=== PATIENT | female | born 1990 | race Caucasian/White ===

== ENCOUNTER 2018-10-10 16:16 | Outpatient (CLI) | payer MEDICAID | END 2018-10-10 16:17 | disposition home or self-care (01) | LOC: LAB 16:16 | PROVIDERS: ATTEND Obstetrics & Gynecology | DX: Z34.82 Encounter for supervision of other normal pregnancy, second trimester (principal); Z36.8A Encounter for antenatal screening for other genetic defects ==

== ENCOUNTER 2018-10-13 18:09 | Outpatient (CLI) | payer MEDICAID | END 2018-10-13 18:10 | disposition home or self-care (01) | LOC: LAB 18:09 | PROVIDERS: ATTEND Obstetrics & Gynecology | DX: Z36.89 Encounter for other specified antenatal screening (principal); Z34.82 Encounter for supervision of other normal pregnancy, second trimester; Z36.8A Encounter for antenatal screening for other genetic defects | CPT/HCPCS: 36415; 81220; 81243; 81329; 81599; 82105; 83021; 85014; 85018; 85041; 86787; 99001 ==

== ENCOUNTER 2018-10-22 07:47 | Outpatient (CLI) | payer MEDICAID ==
--- NOTE | 2018-10-22 09:36 | Ultrasound Report ---
Reason: ENCTR FOR OTHER SPECIFIED SCREENING Procedure Date: 10/22/2018 Accession Number: [id number] / [id number] Procedure: US - OB Detailed Eval CPT Code: FULL RESULT: EXAM: COMPLETE OBSTETRICAL ULTRASOUND EXAM DATE: 10/22/2018 09:10 AM. CLINICAL HISTORY: anatomic survey. COMPARISON: None. TECHNIQUE: Real-time sonographic evaluation of the fetus performed by the steam tank operator. Multiple digital media representative static images were saved for review. DATING: Established EGA 22 weeks 3 days with SAUL 02/22/2019 based on physician stated. EGA 22 weeks 0 days with SAUL 02/25/2019 based on the current ultrasound. GENERAL EVALUATION Flores . Cardiac activity: 159 bpm. movement: Visualized. Presentation: Cephalic. Placenta: Posterior position. No evidence for previa. Umbilical cord: 3 vessel cord. Central placental cord origin. Amniotic fluid: Subjectively normal. HUGO 11.6 cm. MVP 3.6 cm. BIOMETRY Bi-Parietal Diameter (BPD): 5.1 cm, 21 weeks 2 days Head Circumference (HC): 19.8 cm, 22 weeks 0 days Abdominal Circumference (AC): 17.1 cm, 22 weeks 1 day Femur Length (FL): 3.9 cm, 22 weeks 3 days Estimated Weight: 484 g, 33th percentile for 22 weeks 3 days. ANATOMY The intracranial structures, profile, face/nose/lips, spine, 4 chamber heart and outflow tracts, stomach, abdominal wall and cord insertion, diaphragm, kidneys, bladder, and extremities were visualized and demonstrate no abnormality. MATERNAL STRUCTURES Uterus: Unremarkable. Cervix: Long and closed. Transabdominal length 4.8 cm. Right ovary/adnexa: Unremarkable. Left ovary/adnexa: Unremarkable. Free fluid: None. IMPRESSION: 1. Flores live intrauterine with gestational age 22 weeks 3 days based on physician stated. 2. Estimated weight is within expected limits for assigned dating. 3. Normal anatomic survey. No anatomic abnormalities are detected at this time. RADIA
== END 2018-10-22 07:48 | disposition home or self-care (01) ==
LOC: DI 07:47
PROVIDERS: ATTEND Obstetrics & Gynecology
DX: Z36.89 Encounter for other specified antenatal screening (principal)
CPT/HCPCS: 76811

== ENCOUNTER 2018-10-23 12:39 | Outpatient (CLI) | payer MEDICAID | END 2018-10-23 23:59 | disposition home or self-care (01) | LOC: LAB 12:39 | PROVIDERS: ATTEND Obstetrics & Gynecology | DX: Z36.8A Encounter for antenatal screening for other genetic defects (principal) | CPT/HCPCS: 36415 ==

== ENCOUNTER 2019-01-28 10:36 | Outpatient (CLI) | payer MEDICAID ==
--- NOTE | 2019-01-28 11:32 | PROCEDURE REPORT ---
- HPI Diagnosis/Indication for NST: Decreased movement (The patient comes to the OB department today complaining of decreased movement for 2 days and possible leakage of fluid 2 days ago. She thinks she might be having some contractions but she is unsure. She has not had any vaginal fluid since.She transferred from the [facility] to [place] in October of this year for this present . She went there is so she can have a TOLAC.She had a previous section and approximately 36 weeks.) - Results and Plan Findings/Impression: There is a reactive NST noted. There is good movement noted. The monitor strip was read on 01/28/2019. Impression: 1. Intrauterine at 36 weeks 3 days gestation 2. Decreased movement Plan: The patient is going to be discharged home. She does have a appointm ent tomorrow and will keep that appointment. She knows that if she truly does have signs of labor to [place] to be assessed because we do not do TOLAC here. We would need to just repeat her section. The patient understands.
[2019-01-28 11:58] VITALS: BP 116/75
== END 2019-01-28 11:37 | disposition home or self-care (01) ==
LOC: WFO 10:36 → FBP 10:41 → WFO 11:37
PROVIDERS: ATTEND Obstetrics & Gynecology
DX: O36.8130 Decreased fetal movements, third trimester, not applicable or unspecified (principal); O34.219 Maternal care for unspecified type scar from previous cesarean delivery; Z3A.49 Greater than 42 weeks gestation of pregnancy
CPT/HCPCS: 59025

== ENCOUNTER 2019-09-15 08:31 | Emergency (ER) | payer MEDICAID, OTHER ==
[2019-09-15] MEDS ORDERED: CETIRIZINE 10 MG TABLET PO STA (09:03)
[2019-09-15] MEDS ORDERED: CHERRY SYRUP 10 ML UDC PO ONE (09:03)
[2019-09-15] MEDS ORDERED: diphenhydrAMINE 25 MG CAPSULE PO STA (09:03)
[2019-09-15] MEDS ORDERED: DEXAMETHASONE 10 MG/ML VIAL PO STA (09:03)
[2019-09-15] MEDS ORDERED: FAMOTIDINE 20 MG TABLET PO STA (09:03)
[2019-09-15] MEDS ORDERED: ALBUTEROL 1 PUFF INH STA (09:03)
--- NOTE | 2019-09-15 09:21 | ED Physician Documentation ---
PD HPI SKIN - Stated complaint Stated Complaint: SOA - Chief complaint Chief Complaint: Allergic Rx - History obtained from History obtained from: Patient - History of Present Illness Timing - onset: How many weeks ago (3) Timing - duration: Weeks (3) Timing - details: Still present, Waxing and waning Location: Bodywide Quality / character: Itchy, Raised, Swelling. No: Vesicular Improved by: No: Benadryl Associated symptoms: Dyspnea (Her feeling of dyspnea has been most notable in the last week with activity. She has noticed a little bit of congestion and sinus pressure and mild feeling of swelling of her lips and tongue.). No: Fever, Myalgias, N/V/D Contributing factors: No: Exposed to medication (IUD since March. No other regular meds.), Exposed to food, Exposed to soap / lotion, Recent illness Similar symptoms before: Has not had sx before Review of Systems Constitutional: reports: Chills (last night and today). denies: Fever Nose: reports: Congestion, Sinus pressure / pain (for the past week). denies: Rhinorrhea / runny nose Throat: denies: Sore throat Cardiac: denies: Chest pain / pressure, Palpitations Respiratory: reports: Dyspnea, Wheezing. denies: Cough GI: denies: Abdominal Pain, Vomiting, Diarrhea Skin: reports: Rash (Diffuse hives) PD PAST MEDICAL HISTORY - Past Medical History Cardiovascular: None Respiratory: None Neuro: None Endocrine/Autoimmune: None : None - Present Medications Home Medications: Ambulatory Orders Medication Instructions Recorded Confirmed Albuterol Sulfate [Albuterol 2 puffs IH QID #1 hfa.aer.ad 09/15/19 Sulfate Hfa] Cetirizine [ZyrTEC] 10 mg PO BID #15 tablet 09/15/19 Doxycycline Monohydrate 100 mg PO BID #14 tablet 09/15/19 Famotidine 20 mg PO DAILY #7 tablet 09/15/19 dexAMETHasone [Decadron] 4 mg PO DAILY #7 tablet 09/15/19 diphenhydrAMINE [Benadryl] 25 mg PO Q4-6H PRN 09/15/19 09/15/19 - Allergies Allergies/Adverse Reactions: Allergies Allergy/AdvReac Type Severity Reaction Status Date / Time No Known Drug Allergies Allergy Verified 09/15/19 08:36 - Social History Does the pt smoke?: No Smoking Status: Never smoker PD ED PE NORMAL - Vitals Vital signs reviewed: Yes - General General: Alert and oriented X 3, Well developed/nourished - HEENT HEENT: Ears normal, Moist mucous membranes, Pharynx benign - Neck Neck: Supple, no meningeal sign, No adenopathy - Cardiac Cardiac: RRR (tachycardic but regular, no murmur), No murmur, No rub - Respiratory Respiratory: Clear bilaterally - Abdomen Abdomen: Soft, Non tender - Derm Derm: Normal color, Warm and dry, Other (Diffuse variable sized non-confluent slightly raised red flat topped rash without vesicles consistent with hives. This is noted diffusely over the trunk and extremities. Not really much on the face.) - Extremities Extremities: No tenderness to palpate, Normal ROM s pain, No edema, No calf tenderness / cord - Neuro Neuro: Alert and oriented X 3, No motor deficit, Normal speech Results - Vitals Vitals: Vital Signs - 24 hr 09/15/19 09/15/19 09/15/19 08:36 09:02 09:03 Temperature 37.1 C 37.7 C H Heart Rate 110 H 105 H 100 Respiratory 20 17 16 Rate Blood Pressure 120/72 114/79 O2 Saturation 97 99 09/15/19 10:24 Temperature 37.5 C Heart Rate 107 H Respiratory 17 Rate Blood Pressure 104/55 L O2 Saturation 96 Oxygen O2 Source Room air - Labs Labs: Laboratory Tests 09/15/19 09/15/19 09/15/19 09:15 09:15 09:15 WBC 6.7 RBC 5.19 Hgb 15.1 Hct 45.4 MCV 87.5 MCH 29.1 MCHC 33.3 RDW 13.4 Plt Count 230 MPV 11.2 H Neut # (Auto) 4.9 Lymph # (Auto) 1.3 L [place] # (Auto) 0.4 Eos # (Auto) 0.0 Baso # (Auto) 0.0 Absolute Nucleated RBC 0.00 Nucleated RBC % 0.0 ESR 3 Sodium 136 Potassium 3.5 Chloride 104 Carbon Dioxide 24 Anion Gap 8.0 BUN 12 Creatinine 0.6 Estimated GFR (MDRD) 117 Glucose 91 Calcium 8.8 Total Bilirubin 0.6 AST 17 ALT 14 Alkaline Phosphatase 100 Total Protein 8.0 Albumin 4.4 Globulin 3.6 Albumin/Globulin Ratio 1.2 Lipase 23 TSH Urine Color Urine Clarity Urine pH Ur Specific [place] Urine Protein Urine Glucose (UA) Urine Ketones Urine Occult Blood Urine Nitrite Urine Bilirubin Urine Urobilinogen Ur Leukocyte Esterase Urine RBC Urine WBC Ur Squamous Epith Cells Urine Bacteria Urine Mucus Ur Microscopic Review Urine Culture Comments 09/15/19 09/15/19 09:15 10:18 WBC RBC Hgb Hct MCV MCH MCHC RDW Plt Count MPV Neut # (Auto) Lymph # (Auto) [place] # (Auto) Eos # (Auto) Baso # (Auto) Absolute Nucleated RBC Nucleated RBC % ESR Sodium Potassium Chloride Carbon Dioxide Anion Gap BUN Creatinine Estimated GFR (MDRD) Glucose Calcium Total Bilirubin AST ALT Alkaline Phosphatase Total Protein Albumin Globulin Albumin/Globulin Ratio Lipase TSH 0.79 Urine Color YELLOW Urine Clarity HAZY Urine pH 5.5 Ur Specific [place] >=1.030 H Urine Protein NEGATIVE Urine Glucose (UA) NEGATIVE Urine Ketones 40 H Urine Occult Blood NEGATIVE Urine Nitrite NEGATIVE Urine Bilirubin NEGATIVE Urine Urobilinogen 0.2 (NORMAL) Ur Leukocyte Esterase NEGATIVE Urine RBC 0-5 Urine WBC 0-3 Ur Squamous Epith Cells FEW Squamous Urine Bacteria Rare Urine Mucus Few Strands Ur Microscopic Review INDICATED Urine Culture Comments NOT INDICATED - Rads (name of study) chest xray Radiology: Prelim report reviewed (The radiologist read a mild patchy infiltrate in the left lower lobe concerning for early pneumonia. The rest of the lungs are clear.), See rad report PD MEDICAL DECISION MAKING - ED course Complexity details: reviewed results (The chest x-ray was read as early infiltrate in the left lower. Her lab tests are normal with the exception of a mild leukopenia. We will obtain a Covidien test but meanwhile can start some oral antibiotics for concern of a localized bacterial pneumonia. I think her hives would be unlikely to be related to an acute infection now given she has had them for 3 weeks. For that we will treated with antihistamines and steroids. Another concern would be the use of the steroids in the setting of the coronavirus but her hives have been consistent for 3 weeks without resolution from just antihistamines.), considered differential (She has had hives for 3 weeks improved transiently with Benadryl but not consistently improving. She had initially given it time to see if it would get better but is now continuing. She has had a week of some feeling of dyspnea and some swelling of her lips and tongue at times. She is not on any regular medicines. She is not aware of any new foods. Last night she also felt some chills and body aches generally. She denies any cough per se. We will get urine test blood count sed rate and chest x-ray to evaluate for localized infections.), d/w patient Departure - Departure Disposition: 01 Home, Self Care Clinical Impression: Hives, Abnormal chest xray Allergic reaction Qualifiers: Encounter type: initial encounter Qualified Code(s): T78.40XA - Allergy, unspecified, initial encounter Dyspnea Qualifiers: Dyspnea type: shortness of breath Qualified Code(s): R06.02 - Shortness of breath Pneumonia Qualifiers: Pneumonia type: due to unspecified organism Laterality: left Lung location: lower lobe of lung Qualified Code(s): J18.9 - Pneumonia, unspecified organism Condition: Stable Record reviewed to determine appropriate education?: Yes Instructions: ED Allergic Reaction General Other Prescriptions: Albuterol Sulfate [Albuterol Sulfate Hfa] 2 puffs IH QID #1 hfa.aer.ad Cetirizine [ZyrTEC] 10 mg PO BID #15 tablet dexAMETHasone [Decadron] 4 mg PO DAILY #7 tablet Doxycycline Monohydrate 100 mg PO BID #14 tablet Famotidine 20 mg PO DAILY #7 tablet Comments: For the allergic reaction/hives, will use antihistamines long-acting of famotidine and cetirizine for the next week. Continue Benadryl every 6 hours if needed for itching as well. We will also add Decadron steroid daily for a week. See if the hives decrease and are gone over the next 2 to 3 days and remain away over the following week. Follow-up if persistent hives despite the medicines or recurrent episodes in the near future as that may suggest a need for allergy testing more specifically. Your chest x-ray shows a very subtle mild amount of fluid in the left lower area which with your shortness of breath and feeling of chills, would be concerning for early pneumonia. Doxycycline antibiotic for that. The coded test will result in 3 to 4 days and will call you with the result. Meanwhile use the albuterol inhaler 2 puffs 4 times a day as needed for shortness of breath. Discharge Date/Time: 09/15/19 10:59
--- NOTE | 2019-09-15 09:23 | XRAY Report ---
Reason: dyspnea Procedure Date: 09/15/2019 Accession Number: [id number] / [id number] Procedure: XR - Chest 1 View X-Ray CPT Code: 29910 Final Report FULL RESULT: EXAM: CHEST RADIOGRAPHY EXAM DATE: 09/15/2019 09:14 AM. CLINICAL HISTORY: Dyspnea for approximately 1 week. Body aches. Rash. COMPARISON: None. TECHNIQUE: 1 view. FINDINGS: Lungs/Pleura: Patchy left lower lung opacity. Remainder of the lungs are clear. No pneumothorax. The image is rotated. Mediastinum: Heart size and mediastinal contour are within normal limits. Other: None. IMPRESSION: 1. Patchy left lower lung opacity which may represent developing consolidation. No vascular congestion. RADIA
[2019-09-15 09:29] LABS: BASOPHILS % (AUTO) 0.2 %; EOSINOPHILS % (AUTO) 0.2 %; HGB - HEMOGLOBIN 15.1 g/dL (12.0-16.0); LYMPHOCYTES # (AUTO) 1.3 10^3/uL (1.5-3.5); LYMPHOCYTES % (AUTO) 19.4 %; MEAN CORPUSCULAR HEMOGLOBIN 29.1 pg (27.0-31.0); MEAN CORPUSCULAR HGB CONC 33.3 g/dL (32.0-36.0); MEAN CORPUSCULAR VOLUME 87.5 fL (81.0-99.0); MEAN PLATELET VOLUME 11.2 fL (7.9-10.8); MONOCYTES # (AUTO) 0.4 10^3/uL (0.0-1.0); MONOCYTES % (AUTO) 5.9 %; NEUTROPHILS # (AUTO) 4.9 10^3/uL (1.5-6.6); PLT - PLATELET COUNT 230 10^3/uL (130-450); RED BLOOD COUNT 5.19 10^6/uL (4.20-5.40); RED CELL DISTRIBUTION WIDTH 13.4 % (12.0-15.0); WHITE BLOOD COUNT 6.7 x10^3/uL (4.8-10.8)
[2019-09-15 09:41] LABS: ALBUMIN 4.4 g/dL (3.2-5.5); ALBUMIN/GLOBULIN RATIO 1.2 (1.0-2.2); BILIRUBIN,TOTAL 0.6 mg/dL (0.2-1.0); CALCIUM 8.8 mg/dL (8.5-10.3); CREATININE 0.6 mg/dL (0.4-1.0)
[2019-09-15 10:24] LABS: BILIRUBIN,URINE NEGATIVE (NEGATIVE); GLUCOSE, URINE (UA) NEGATIVE (NEGATIVE); KETONES,URINE (UA) 40 mg/dL (NEGATIVE); LEUKOCYTE ESTERASE, URINE NEGATIVE (NEGATIVE); NITRITE,URINE NEGATIVE (NEGATIVE); OCCULT BLOOD,URINE NEGATIVE (NEGATIVE); PH,URINE 5.5 PH (5.0-7.5); PROTEIN,URINE NEGATIVE (NEGATIVE); UROBILINOGEN,URINE 0.2 (NORMAL) E.U./dL (NORMAL)
[2019-09-15 10:25] VITALS: BP 104/55
[2019-09-15 10:28] LABS: CLARITY,URINE HAZY (CLEAR)
[2019-09-15 10:35] LABS: BACTERIA,URINE Rare /HPF (None Seen); MUCUS,URINE Few Strands; RBC,URINE 0-5 /HPF (0-5); SQUAMOUS EPITHELIAL CELL,UR FEW Squamous (<= Few)
== END 2019-09-15 10:59 | disposition home or self-care (01) ==
LOC: ED 08:31
DX: T78.40XA Allergy, unspecified, initial encounter (principal); J18.9 Pneumonia, unspecified organism
CPT/HCPCS: 36415; 71045; 81001; 83690; 85651; 87635; 94640; 99284; A9270; 80053; 81003; 81599; 84443; 85025; 87086

== ENCOUNTER 2021-09-08 08:00 | Outpatient (CLI) | payer OTHER | END 2021-09-08 23:59 | disposition home or self-care (01) | LOC: LAB.N 08:00 | PROVIDERS: ATTEND Nurse Practitioner | DX: N39.0 Urinary tract infection, site not specified (principal) | CPT/HCPCS: 87086; 87181 ==

== ENCOUNTER 2022-02-16 08:00 | Outpatient (CLI) | payer OTHER ==
--- NOTE | 2022-02-16 18:25 | XRAY Report ---
PROCEDURE: Knee 2 View RT INDICATIONS: RIGHT KNEE PAIN TECHNIQUE: PA, lateral and sunrise views of the right knee were obtained. COMPARISON: None. FINDINGS: Bones: No fractures or dislocations. No suspicious bony lesions. Soft tissues: No joint effusion. No suspicious soft tissue calcifications. IMPRESSION: Unremarkable tunnel and patellar sunrise views of the right knee Reviewed by: Luis Gibbs MD on 02/16/2022 5:24 PM AKDT Approved by: Luis Gibbs MD on 02/16/2022 5:24 PM AKDT Station ID: [id number]
== END 2022-02-16 23:59 | disposition home or self-care (01) ==
LOC: DI.WOS 08:00
PROVIDERS: ATTEND Physician Assistant
DX: M25.461 Effusion, right knee (principal); Y99.0 Civilian activity done for income or pay

== ENCOUNTER 2022-03-20 13:10 | Outpatient (CLI) | payer OTHER ==
--- NOTE | 2022-03-21 14:37 | MRI Report ---
PROCEDURE: Knee RT W/O INDICATIONS: RIGHT KNEE EFFUSION TECHNIQUE: Noncontrast sagittal PD fast spin echo and T2 fast spin echo with fat saturation, sagittal 3-D gradie nt sequence with fat saturation; coronal T1 spin echo and PD fast spin echo with fat saturation, and axial PD fast spin echo with fat saturation through the knee. COMPARISON: X-ray of the right knee, 02/16/2022. X-ray knees bilateral, 01/27/2022. FINDINGS: Image quality: Excellent. Menisci: The medial and lateral menisci demonstrate normal morphology and internal signal. The meni scal root ligaments appear intact. Cruciate ligaments: The anterior and posterior cruciate ligaments appear intact. Medial structures: The medial collateral ligament appears intact. The semimembranosus tendon insert ions, and meniscocapsular junction appear intact. Visualized portions of the pes anserinus tendons a ppear normal. No abnormal bursal fluid. Lateral structures: The lateral collateral ligament, long and short heads of the biceps femoris tend on appear intact. The popliteus tendon appears normal. Iliotibial band appears normal. Anterior structures: The quadriceps and patellar tendons appear intact. Patellar alignment is brittany l. No femoral trochlear dysplasia or ventral trochlear prominence. There is edema in the superolater al aspect of the infrapatellar fat pad (series 5 image 15; series 7 image 13). Bones and cartilage: No bone marrow contusions or fractures. There is cartilage fibrillation and a n [id number] cartilage fissure in patella (series 5 image 9; Series 7 image 16). Joint space: There is trace knee joint effusion. No Lunsford's cyst. Normal appearing synovial plicae are incidentally noted. IMPRESSION: 1. There is a near full-thickness cartilage fissure in patella. 2. Edema in the infrapatellar fat pad suggesting infrapatellar fat-pad impingement. 3. Small knee joint effusion. Reviewed by: Sanjana Villanueva MD on 03/21/2022 2:36 PM PDT Approved by: Sanjana Villanueva MD on 03/21/2022 2:36 PM PDT Station ID: [id number]
== END 2022-03-20 13:11 | disposition home or self-care (01) ==
LOC: DI 13:10
PROVIDERS: ATTEND Registered Nurse
DX: M23.91 Unspecified internal derangement of right knee (principal); M25.461 Effusion, right knee

== ENCOUNTER 2022-11-09 13:42 | Outpatient (CLI) | payer OTHER ==
[2022-11-09 13:58] LABS: HCT - HEMATOCRIT 41.3 % (37.0-47.0); MEAN CORPUSCULAR HEMOGLOBIN 28.9 pg (27.0-31.0); MEAN CORPUSCULAR HGB CONC 33.9 g/dL (32.0-36.0); MEAN CORPUSCULAR VOLUME 85.2 fL (81.0-99.0); MEAN PLATELET VOLUME 11.6 fL (7.9-10.8); RED BLOOD COUNT 4.85 10^6/uL (4.20-5.40); RED CELL DISTRIBUTION WIDTH 13.2 % (12.0-15.0); WHITE BLOOD COUNT 8.6 x10^3/uL (4.8-10.8)
[2022-11-09 14:13] LABS: ALBUMIN 4.5 g/dL (3.2-5.5); ALBUMIN/GLOBULIN RATIO 1.3 (1.0-2.2); BILIRUBIN,TOTAL 0.5 mg/dL (0.2-1.0); CREATININE 0.6 mg/dL (0.4-1.0); POTASSIUM 3.3 mmol/L (3.5-5.0); TOTAL PROTEIN 8.1 g/dL (6.7-8.2)
[2022-11-09 14:27] LABS: T4 (THYROXINE) 10.28 ug/dL (6.09-12.23)
[2022-11-09 14:31] LABS: THYROID STIMULATING HORMONE 0.65 uIU/mL (0.34-5.60)
--- NOTE | 2022-11-09 16:24 | Ultrasound Report ---
PROCEDURE: Pelvic w/Transvaginal INDICATIONS: IRREGULAR MENSTRATION TECHNIQUE: Real-time scanning was performed of the pelvic organs, with image documentation. Additional endovagi nal scanning was necessary due to incomplete visualization of the adnexal and endometrial structures by transabdominal scanning. COMPARISON: None. FINDINGS: Uterus: Uterus is anteverted and normal in size at 7.8 x 5.0 x 4.0 cm. The myometrium is homogeneou s. The endometrium measures 15 mm in combined thickness. Ovaries: The right ovary measures 3.2 x 2.9 x 3.4 cm, with a calculated ovarian volume of 16 cc. Th e left ovary measures 1.8 x 1.3 x 2.5 cm, with a calculated ovarian volume of 3 cc. The ovaries have a normal sonographic appearance. Less than 12 follicles can be seen in each ovary. No adnexal mass es are seen. No cystic lesions measuring greater than 3 cm. Degenerative right-sided corpus luteum. B enign right paraovarian cyst measuring 1.4 cm. Other: No pathologic free abdominal or pelvic fluid. IMPRESSION: Endometrial stripe measures 15 mm, within normal limits for age. Reviewed by: Christos Simental on 11/09/2022 4:23 PM PDT Approved by: Christos Simental on 11/09/2022 4:23 PM PDT Station ID: [id number]
[2022-11-09 21:53] LABS: ESTIMATED AVERAGE GLUCOSE 97 mg/dL (70-100)
== END 2022-11-09 13:43 | disposition home or self-care (01) ==
LOC: DI 13:42
PROVIDERS: ATTEND Nurse Practitioner
DX: N92.6 Irregular menstruation, unspecified (principal)
CPT/HCPCS: 36415; 80053; 83036; 84436; 84443; 84480; 85027

== ENCOUNTER 2023-01-17 08:00 | Outpatient (CLI) | payer OTHER | END 2023-01-17 23:59 | disposition home or self-care (01) | LOC: LAB.N 08:00 | PROVIDERS: ATTEND Physician Assistant Medical | DX: R30.0 Dysuria (principal) | CPT/HCPCS: 87086 ==

== ENCOUNTER 2023-06-21 09:30 | Outpatient (CLI) | payer OTHER | END 2023-06-21 09:45 | disposition home or self-care (01) | LOC: LAB.N 09:30 | PROVIDERS: ATTEND Family Medicine | DX: N39.0 Urinary tract infection, site not specified (principal) | CPT/HCPCS: 87086 ==

== ENCOUNTER 2023-08-26 15:09 | Outpatient (CLI) | payer OTHER ==
[2023-08-26 17:32] LABS: BACTERIAL VAGINOSIS DNA NEGATIVE (NEGATIVE); CANDIDA GLABRATA DNA NEGATIVE (NEGATIVE); CANDIDA GROUP DNA NEGATIVE (NEGATIVE); CANDIDA KRUSEI DNA NEGATIVE (NEGATIVE); TRICHOMONAS VAGINALIS DNA NEGATIVE (NEGATIVE)
[2023-08-26 23:27] LABS: CHLAMYDIA TRACHOMATIS DNA NEGATIVE (NEGATIVE); NEISSERIA GONORRHOEAE DNA NEGATIVE (NEGATIVE)
[2023-08-27 06:10] LABS: HIV SCREEN 4TH GENERATION Non Reactive (Non Reactive); HSV 1 IGG TYPE SPEC 9.64 index (0.00-0.90); HSV 2 IGG TYPE SPEC <0.91 index (0.00-0.90)
[2023-08-27 08:11] LABS: HCV AB Non Reactive (Non Reactive)
[2023-08-28 01:08] LABS: HBsAG SCREEN Negative (Negative)
== END 2023-08-26 15:10 | disposition home or self-care (01) ==
LOC: LAB 15:09
PROVIDERS: ATTEND Nurse Practitioner
DX: Z20.2 Contact with and (suspected) exposure to infections with a predominantly sexual mode of transmission (principal)
CPT/HCPCS: 36415; 81514; 86592; 86695; 86696; 86803; 87340; 87389; 87491; 87591; 87661